=== PATIENT | female | born 1990 | race Caucasian/White ===

== ENCOUNTER 2018-11-06 13:41 | Emergency (ER) | payer BC, MEDICAID ==
[~2018-11-06] VITALS: Ht 160 cm; Wt 57.7 kg
[2018-11-06 13:44] VITALS: TEMP 97
[2018-11-06] MEDS ORDERED: PRENATAL MVI PO (13:46)
[2018-11-06] MEDS ORDERED: BONJESTA ER 201 EACH PO (13:47)
[2018-11-06 14:18] LABS: COLLECTION METHOD CLEAN CATCH
[2018-11-06 14:30] LABS: MUCOUS Present /lpf; PH 6 (5-8); SQUAMOUS EPITHELIAL 0-2 /hpf; URINE APPEARANCE Hazy; URINE BACTERIA None Seen /hpf; URINE BILIRUBIN Negative (NEGATIVE); URINE BLOOD Negative (NEGATIVE); URINE COLOR Yellow; URINE GLUCOSE Negative (NEGATIVE); URINE KETONE 2+ (NEGATIVE); URINE LEUKOCYTE ESTERASE Negative (NEGATIVE); URINE NITRATE Negative (NEGATIVE); URINE PROTEIN(semi-quant) 1+ (NEGATIVE); URINE UROBILINOGEN Negative (NEGATIVE)
[2018-11-06 14:56] VITALS: BP 101/71
[2018-11-06 15:38] VITALS: PULSE 60
== END 2018-11-06 15:39 | disposition home or self-care (01) ==
LOC: COL.ER 13:41
PROVIDERS: Physician Assistant
DX: O21.0 Mild hyperemesis gravidarum (principal); Z3A.01 Less than 8 weeks gestation of pregnancy
CPT/HCPCS: J2405; J2550; J7030